=== PATIENT | female | born 1935 | race Caucasian/White ===

== ENCOUNTER 2016-02-19 00:30 | Emergency (ER) | payer OTHER ==
[2016-02-19] MEDS ORDERED: ALBUTEROL/IPRATROPIUM 1 VIAL SOL INH ONE ×3 (00:41→01:51)
[2016-02-19] MEDS ORDERED: ALBUTEROL/IPRATROPIUM 1 VIAL SOL ONE ×3 (00:42→01:52)
[2016-02-19 00:51] VITALS: TEMP 97.7
[2016-02-19] MEDS ORDERED: PREDNISONE 20 MG TAB PO ONE (01:04)
[2016-02-19] MEDS ORDERED: PREDNISONE 20 MG TAB ONE (01:10)
[2016-02-19 01:25] LABS: BASOPHILS % (AUTO) 0 % (0-3); EOSINOPHILS % (AUTO) 0 % (0-9); HEMATOCRIT 41 % (35-47); MONOCYTES % (AUTO) 6.6 % (0-12); NEUTROPHILS % (AUTO) 83.5 % (37-80)
[2016-02-19 01:45] LABS: GLOM FILT RATE 70 mL/min (>60); POTASSIUM 4.4 mMol/L (3.5-5.1); SODIUM 140 mMol/L (136-145)
[2016-02-19 02:29] VITALS: BP 139/73; PULSE 79; RESP 17; O2SAT 97
== END 2016-02-19 02:20 | disposition home or self-care (01) | DRG 203 ==
LOC: ED 00:30
DX: J45.901 Unspecified asthma with (acute) exacerbation (principal)
CPT/HCPCS: 36415; 71010; 80048; 84484; 85025; 85378; 93005; 99284; 99285; J7620

== ENCOUNTER 2016-02-20 21:50 | Emergency (ER) | payer OTHER ==
[2016-02-20] MEDS ORDERED: LORAZEPAM 0.5 MG TAB ONE (22:44)
[2016-02-20] MEDS ORDERED: LORAZEPAM 0.5 MG TAB PO ONE (22:44)
[2016-02-20] MEDS ORDERED: CODEINE/GUAIFENESIN 5 ML SOL PO ONE (22:50)
[2016-02-20] MEDS ORDERED: ALBUTEROL/IPRATROPIUM 1 VIAL SOL INH ONE (22:50)
[2016-02-20] MEDS ORDERED: ALBUTEROL/IPRATROPIUM 1 VIAL SOL ONE (22:51)
[2016-02-20] MEDS ORDERED: CODEINE/GUAIFENESIN 5 ML SOL ONE (22:51)
[2016-02-21] MEDS ORDERED: ALBUTEROL/IPRATROPIUM 1 VIAL SOL INH ONE (00:07)
[2016-02-21] MEDS ORDERED: BENZONATATE 200 MG SGL PO PRN (00:14)
[2016-02-21] MEDS ORDERED: CIPROFLOXACIN HCL 500 MG TAB PO SCH (00:15)
[2016-02-21] MEDS ORDERED: ALBUTEROL/IPRATROPIUM 1 VIAL SOL ONE (00:24)
[2016-02-21] MEDS ORDERED: CIPROFLOXACIN HCL 500 MG TAB PO ONE (00:31)
[2016-02-21 00:41] VITALS: RESP 24
[2016-02-21 00:47] VITALS: TEMP 98
[2016-02-21] MEDS ORDERED: PROPRANOLOL HYDROCHLORIDE 20 MG TAB PO SCH (01:00)
[2016-02-21] MEDS ORDERED: LORAZEPAM 0.5 MG TAB PO ONE ×2 (01:11)
[2016-02-21] MEDS ORDERED: LORAZEPAM 0.5 MG TAB ONE (01:12)
[2016-02-21] MEDS ORDERED: CODEINE/GUAIFENESIN 5 ML SOL ONE (01:18)
[2016-02-21 03:10] VITALS: O2SAT 91
[2016-02-21 03:11] VITALS: BP 133/72; PULSE 73
== END 2016-02-21 01:43 | disposition home or self-care (01) | DRG 203 ==
LOC: ED 21:50
DX: J45.901 Unspecified asthma with (acute) exacerbation (principal); F41.9 Anxiety disorder, unspecified; R05 Cough
CPT/HCPCS: 71020; 99284; 99285; J7620

== ENCOUNTER 2016-02-25 13:03 | Emergency (ER) | payer OTHER ==
[2016-02-25] MEDS ORDERED: ALBUTEROL/IPRATROPIUM 1 VIAL SOL INH ONE (13:48)
[2016-02-25 13:51] LABS: BASOPHILS % (AUTO) 1 % (0-3); EOSINOPHILS % (AUTO) 2 % (0-9); HEMATOCRIT 37 % (35-47); MEAN CORPUSCULAR HGB CONC 34.5 gm/dl (32.0-36.0); NEUTROPHILS % (AUTO) 71.4 % (37-80)
[2016-02-25 13:52] VITALS: RESP 20; TEMP 98.4
[2016-02-25] MEDS ORDERED: ALBUTEROL/IPRATROPIUM 1 VIAL SOL ONE (13:52)
[2016-02-25 14:09] LABS: ALBUMIN 2.5 gm/dl (3.4-5.0); CALCIUM 8.2 mg/dl (8.5-10.1); MAGNESIUM 1.6 mg/dl (1.8-2.4); POTASSIUM 3.4 mMol/L (3.5-5.1)
[2016-02-25 14:17] VITALS: O2SAT 99
[2016-02-25] MEDS ORDERED: AZITHROMYCIN 250 MG TAB PO ONE (14:46)
[2016-02-25 14:56] VITALS: BP 122/63; PULSE 84
[2016-02-25] MEDS ORDERED: AZITHROMYCIN 250 MG TAB ONE (15:02)
== END 2016-02-25 16:00 | disposition home or self-care (01) | DRG 202 ==
LOC: ED 13:03
DX: J45.901 Unspecified asthma with (acute) exacerbation (principal); J18.9 Pneumonia, unspecified organism
CPT/HCPCS: 80053; 83735; 85025; 85378; 99283; J7620

== ENCOUNTER 2016-03-06 03:56 | Emergency (ER) | payer OTHER ==
[2016-03-06 04:03] VITALS: RESP 20
[2016-03-06] MEDS ORDERED: SODIUM CHLORIDE 0.9% 1000ML 1,000 ML IV ONE ×2 (04:10→05:11)
[2016-03-06] MEDS ORDERED: SODIUM CHLORIDE 0.9% FLUSH 10 ML SOL IV PRN (04:15)
[2016-03-06] MEDS ORDERED: PANTOPRAZOLE SODIUM 40 MG/10 ML PDS IV ONE (04:20)
[2016-03-06] MEDS ORDERED: KETOROLAC TROMETHAMINE 30 MG/ML SOL IV ONE (04:20)
[2016-03-06] MEDS ORDERED: KETOROLAC TROMETHAMINE 30 MG/ML SOL ONE (04:21)
[2016-03-06] MEDS ORDERED: PANTOPRAZOLE SODIUM 40 MG/10 ML PDS ONE (04:21)
[2016-03-06 04:44] VITALS: TEMP 98.7
[2016-03-06 05:06] VITALS: BP 117/52; PULSE 96; O2SAT 90
== END 2016-03-06 07:15 | disposition home or self-care (01) | DRG 392 ==
LOC: ED 03:56
DX: K52.9 Noninfective gastroenteritis and colitis, unspecified (principal)
CPT/HCPCS: 96365; 96366; 96374; 96375; 99283; 99285; J1885

== ENCOUNTER 2016-08-29 07:49 | Emergency (ER) | payer OTHER ==
[2016-08-29] MEDS ORDERED: KETOROLAC TROMETHAMINE 30 MG/ML SOL IM ONE (08:18)
[2016-08-29 08:30] LABS: BASOPHILS % (AUTO) 1 % (0-3); EOSINOPHILS % (AUTO) 0 % (0-9); HEMATOCRIT 34 % (35-47); MEAN CORPUSCULAR HGB CONC 34.4 gm/dl (32.0-36.0); MEAN CORPUSCULAR VOLUME 85 fL (81-99); NEUTROPHILS % (AUTO) 71.2 % (37-80)
[2016-08-29] MEDS ORDERED: KETOROLAC TROMETHAMINE 30 MG/ML SOL ONE (08:34)
[2016-08-29 08:43] LABS: ALBUMIN 3.3 gm/dl (3.4-5.0); CALCIUM 8.4 mg/dl (8.5-10.1); POTASSIUM 3.4 mMol/L (3.5-5.1)
[2016-08-29 08:59] LABS: APPEARANCE,URINE Clear; BILIRUBIN,URINE NEGATIVE (NEGATIVE); COLOR,URINE Yellow; GLUCOSE, URINE (UA) NEGATIVE (NEGATIVE); KETONES,URINE NEGATIVE (NEGATIVE); LEUKOCYTE ESTERASE ,URINE NEGATIVE (NEGATIVE); NITRATE,URINE POSITIVE (NEGATIVE); OCCULT BLOOD,URINE TRACE INTACT (NEG-TRACE); UROBILINOGEN,URINE 0.2 (0.2-1.0 EU)
[2016-08-29 09:01] VITALS: RESP 14
[2016-08-29 09:08] LABS: RBC,URINE NEGATIVE (0-3AV/HPF); WBC,URINE NEGATIVE (0-5AV/HPF)
[2016-08-29 18:01] VITALS: BP 120/87; PULSE 76; TEMP 97.4; O2SAT 98
== END 2016-08-29 12:44 | disposition home or self-care (01) | DRG 392 ==
LOC: ED 07:49
DX: K59.01 Slow transit constipation (principal); Z87.442 Personal history of urinary calculi
CPT/HCPCS: 36415; 74176; 80053; 81001; 85025; 99283; J1885

== ENCOUNTER 2016-09-28 09:47 | Emergency (ER) | payer OTHER ==
[2016-09-28 10:32] LABS: BASOPHILS % (AUTO) 2 % (0-3); EOSINOPHILS % (AUTO) 3 % (0-9); HEMATOCRIT 40 % (35-47); MEAN CORPUSCULAR HGB CONC 33.9 gm/dl (32.0-36.0); MEAN CORPUSCULAR VOLUME 90 fL (81-99); MONOCYTES % (AUTO) 8.5 % (0-12); NEUTROPHILS % (AUTO) 63.6 % (37-80)
[2016-09-28 10:36] LABS: CALCIUM 8.8 mg/dl (8.5-10.1); POTASSIUM 3.8 mMol/L (3.5-5.1)
[2016-09-28 11:10] LABS: APPEARANCE,URINE Slightly Cloudy; BILIRUBIN,URINE NEGATIVE (NEGATIVE); COLOR,URINE Yellow; GLUCOSE, URINE (UA) NEGATIVE (NEGATIVE); KETONES,URINE NEGATIVE (NEGATIVE); LEUKOCYTE ESTERASE ,URINE 1+ (NEGATIVE); NITRATE,URINE NEGATIVE (NEGATIVE); OCCULT BLOOD,URINE TRACE INTACT (NEG-TRACE); UROBILINOGEN,URINE 0.2 (0.2-1.0 EU)
[2016-09-28 11:14] VITALS: TEMP 98.4
[2016-09-28 11:23] LABS: RBC,URINE 0-1 (0-3AV/HPF); WBC,URINE 0-2 (0-5AV/HPF)
[2016-09-28 12:14] VITALS: BP 125/80; PULSE 87; RESP 17; O2SAT 92
== END 2016-09-28 12:19 | disposition home or self-care (01) | DRG 690 ==
LOC: ED 09:47
DX: N39.0 Urinary tract infection, site not specified (principal)
CPT/HCPCS: 36415; 80048; 81001; 85025; 87088; 99282; 99283

== ENCOUNTER 2016-10-15 11:54 | Outpatient (CLI) | payer OTHER ==
[2016-09-28 12:14] VITALS: O2SAT 92
== END 2016-10-15 11:55 | disposition home or self-care (01) | DRG 561 ==
LOC: CONVCARE 11:54
PROVIDERS: ATTEND Orthopaedic Surgery
DX: S32.010D Wedge compression fracture of first lumbar vertebra, subsequent encounter for fracture with routine healing (principal)
CPT/HCPCS: 72120

== ENCOUNTER 2017-10-31 15:48 | Emergency (ER) | payer OTHER ==
[2017-10-31] MEDS ORDERED: LIDOCAINE HCL 2% MPF 10 ML SOL SC ONE (15:52)
[2017-10-31] MEDS ORDERED: LIDOCAINE HCL 2% MPF 10 ML SOL ONE ×2 (15:54)
[2017-10-31 16:03] VITALS: TEMP 96.5
[2017-10-31] MEDS ORDERED: BACITRACIN 500 U/GM OIN TOP ONE ×2 (16:11→16:46)
[2017-10-31] MEDS ORDERED: TDAP VACCINE 0.5 ML SUS IM ONE ×2 (16:12→16:46)
[2017-10-31 19:39] VITALS: BP 100/55; PULSE 59; RESP 16; O2SAT 94
== END 2017-10-31 17:41 | disposition home or self-care (01) | DRG 605 ==
LOC: ED 15:48
DX: S01.81XA Laceration without foreign body of other part of head, initial encounter (principal)
CPT/HCPCS: 12015; 90471; 90715; 99284; A9270-GY

== ENCOUNTER 2018-07-02 18:10 | Inpatient (IN) | payer OTHER ==
[2018-07-02] MEDS ORDERED: NITROGLYCERIN 0.4 MG TAB SL ONE (18:14)
[2018-07-02] MEDS ORDERED: ASPIRIN 81 MG CHEWABLE CTB ONE (18:14)
[2018-07-02] MEDS ORDERED: ASPIRIN 81 MG CHEWABLE CTB PO ONE (18:16)
[2018-07-02] MEDS ORDERED: ACETAMINOPHEN 500 MG 500 MG TAB PO ONE (18:16)
[2018-07-02] MEDS ORDERED: SODIUM CHLORIDE 0.9% 1000ML 1,000 ML IV ONE (18:18)
[2018-07-02] MEDS: NITROGLYCERIN 0.4 MG TAB SL PRN ×2 (18:21→18:39)
[2018-07-02 18:23] LABS: BASOPHILS % (AUTO) 0 % (0-3); EOSINOPHILS % (AUTO) 0 % (0-9); HEMATOCRIT 39 % (35-47); HEMOGLOBIN 12.5 gm/dl (12.0-15.5); LYMPHOCYTES % (AUTO) 3.4 % (10-50); MEAN CORPUSCULAR HEMOGLOBIN 28.2 pg (27.0-32.0); MEAN CORPUSCULAR HGB CONC 31.7 gm/dl (32.0-36.0); MEAN CORPUSCULAR VOLUME 89 fL (81-99); MONOCYTES % (AUTO) 5.1 % (0-12); NEUTROPHILS % (AUTO) 91.5 % (37-80)
[2018-07-02] MEDS ORDERED: ALBUTEROL NEB SOL 2.5MG/3ML 1 VIAL SOL ONE (18:26)
[2018-07-02] MEDS ORDERED: LORAZEPAM 2 MG/ML SOL ONE ×2 (18:27→18:37)
[2018-07-02] MEDS: ALBUTEROL NEB SOL 2.5MG/3ML 1 VIAL SOL NEB PRN (18:31)
[2018-07-02] MEDS: LORAZEPAM 2 MG/ML 10ML MDV 2 MG/ML VIAL IV PRN ×3 (18:32→18:40)
[2018-07-02] MEDS ORDERED: ACETAMINOPHEN 500 MG 500 MG TAB ONE (18:33)
[2018-07-02 18:35] LABS: INR 0.96 (0.86-1.12)
[2018-07-02] MEDS ORDERED: FENTANYL 100MCG/2ML SOL IV ONE (18:38)
[2018-07-02] MEDS ORDERED: FENTANYL 100MCG/2ML SOL ONE (18:46)
[2018-07-02 18:48] LABS: ALBUMIN 3.4 gm/dl (3.4-5.0); ALKALINE PHOSPHATASE 95 IU/L (46-116); ALT 16 IU/L (14-63); AST 11 IU/L (15-37); BILIRUBIN,TOTAL 0.4 mg/dl (0.2-1.0); BLOOD UREA NITROGEN 19 mg/dl (7-18); CALCIUM 8.8 mg/dl (8.5-10.1); CARBON DIOXIDE 28.9 mEq/L (21-32); CHLORIDE 101 mMol/L (98-107); CREATININE 0.91 mg/dl (0.60-1.00); GLUCOSE 189 mg/dl (74-106); POTASSIUM 3.8 mMol/L (3.5-5.1); SODIUM 139 mMol/L (136-145); TOTAL PROTEIN 7.6 gm/dl (6.4-8.2); TROP I < 0.017 ng/ml (0.000-0.056)
[2018-07-02] MEDS ORDERED: ALBUTEROL NEB SOL 2.5MG/3ML 1 VIAL SOL NEB PRN (19:54)
[2018-07-02] MEDS ORDERED: KETOROLAC TROMETHAMINE 30 MG/ML SOL IV ONE (19:55)
[2018-07-02] MEDS ORDERED: OSELTAMIVIR PHOSPHATE 75 MG CAP PO SCH ×3 (21:00→21:02)
[2018-07-02] MEDS ORDERED: SERTRALINE HYDROCHLORIDE 50 MG TAB PO SCH (21:00)
[2018-07-02] MEDS ORDERED: QUETIAPINE FUMARATE 25 MG TAB PO SCH (21:00)
[2018-07-02] MEDS ORDERED: TRAZODONE HYDROCHLORIDE 50 MG TAB PO SCH (21:00)
[2018-07-03] MEDS ORDERED: IBUPROFEN 400 MG TAB PO PRN (01:30)
[2018-07-03] MEDS: ALBUTEROL NEB SOL 2.5MG/3ML 1 VIAL SOL NEB PRN ×3 (01:57→06:46)
[2018-07-03] MEDS ORDERED: LORAZEPAM 2 MG/ML SOL ONE ×2 (02:02→03:18)
[2018-07-03] MEDS: LORAZEPAM 2 MG/ML 10ML MDV 2 MG/ML VIAL IV PRN ×2 (02:05→03:22)
[2018-07-03 04:41] VITALS: TEMP 97.4
[2018-07-03] MEDS ORDERED: BISACODYL 10 MG SUP PR PRN (05:10)
[2018-07-03] MEDS ORDERED: LIDOCAINE HCL 2% (VISCOUS) 15 ML SOL MT ONE (05:14)
[2018-07-03] MEDS ORDERED: ALUMINUM/MAGNESIUM 30 ML SUS PO ONE (05:14)
[2018-07-03 07:26] LABS: HEMATOCRIT 34 % (35-47); HEMOGLOBIN 10.9 gm/dl (12.0-15.5); MEAN CORPUSCULAR HEMOGLOBIN 28.7 pg (27.0-32.0); MEAN CORPUSCULAR HGB CONC 31.9 gm/dl (32.0-36.0); MEAN CORPUSCULAR VOLUME 90 fL (81-99)
[2018-07-03] MEDS ORDERED: SODIUM CHLORIDE 0.9% 1000ML 500 ML IV ONE (07:34)
[2018-07-03 07:40] LABS: APPEARANCE,URINE Slightly Cloudy; BILIRUBIN,URINE NEGATIVE (NEGATIVE); COLOR,URINE Yellow; GLUCOSE, URINE (UA) 1+ (NEGATIVE); KETONES,URINE NEGATIVE (NEGATIVE); LEUKOCYTE ESTERASE ,URINE NEGATIVE (NEGATIVE); NITRATE,URINE NEGATIVE (NEGATIVE); OCCULT BLOOD,URINE TRACE INTACT (NEG-TRACE); PH,URINE 5.5; UROBILINOGEN,URINE 0.2 (0.2-1.0 EU)
[2018-07-03 07:46] LABS: LACTIC ACID 1.9 mMol/L (0.0-2.0)
[2018-07-03 07:54] LABS: BACTERIA 1+ (< 1+); CRYSTALS NEGATIVE (0-3 AVE/HPF); EPITHELIAL CELLS 0-4 (SQUAMOUS); RBC,URINE 0-1 (0-3AV/HPF)
[2018-07-03] MEDS ORDERED: PIPERACILLIN/TAZOBACT 3.375 GM 4.5 GM in SODIUM CHLORIDE 0.9% 100 ML 100 ML IV ONE (07:55)
[2018-07-03] MEDS ORDERED: SODIUM CHLORIDE 0.9% 1000ML 1,000 ML IV ONE ×2 (07:55→08:11)
[2018-07-03] MEDS ORDERED: VANCOMYCIN HCL IV ONE (07:55)
[2018-07-03] MEDS ORDERED: SODIUM CHLORIDE 0.9% IV ONE (07:55)
[2018-07-03] MEDS ORDERED: PDS IV ONE (07:55)
[2018-07-03 07:59] LABS: BAND NEUTROPHILS % (MANUAL) 50 %; NEUTROPHILS % (MANUAL) 38 % (37-80)
[2018-07-03 08:00] LABS: ALBUMIN 2.7 gm/dl (3.4-5.0); ALKALINE PHOSPHATASE 69 IU/L (46-116); ALT 11 IU/L (14-63); AST 11 IU/L (15-37); BASOPHILS % (MANUAL) 0 % (0-3); BILIRUBIN,TOTAL 0.8 mg/dl (0.2-1.0); BLOOD UREA NITROGEN 21 mg/dl (7-18); CALCIUM 7.9 mg/dl (8.5-10.1); CARBON DIOXIDE 22.9 mEq/L (21-32); CHLORIDE 104 mMol/L (98-107); EOSINOPHILS % (MANUAL) 0 % (0-9); GLUCOSE 129 mg/dl (74-106); LYMPHOCYTES % (MANUAL) 7 % (10-50); MONOCYTES % (MANUAL) 5 % (0-12); NORMAL RBCS PRESENT; POTASSIUM 3.3 mMol/L (3.5-5.1); SODIUM 138 mMol/L (136-145); TOTAL PROTEIN 6.2 gm/dl (6.4-8.2); TROP I < 0.017 ng/ml (0.000-0.056)
[2018-07-03] MEDS ORDERED: VANCOMYCIN HYDROCHLORIDE 500 MG PDS IV ONE (08:04)
[2018-07-03] MEDS ORDERED: PIPERACILLIN/TAZOBACT 3.375 GM PDS IV ONE (08:04)
[2018-07-03] MEDS ORDERED: WATER STERILE ONE (08:06)
[2018-07-03] MEDS ORDERED: NOREPINEPHRINE BITARTRATE 4 MG/4 ML SOL IV ONE (08:08)
[2018-07-03 08:11] LABS: ABG PH 7.27 (7.35-7.45)
[2018-07-03] MEDS ORDERED: NOREPINEPHRINE 4 MG/4 ML 4 MG in DEXTROSE 500 ML 500 ML IV SCH (08:15)
[2018-07-03] MEDS ORDERED: ETOMIDATE 2 MG/ML SOL IV ONE ×2 (08:19→08:20)
[2018-07-03] MEDS ORDERED: SUCCINYLCHOLINE CHLORIDE 20 MG/ML SOL IV ONE ×2 (08:19→08:21)
[2018-07-03] MEDS ORDERED: CEFTRIAXONE 1 GM PDS 2 GM in SODIUM CHLORIDE 0.9% 100 ML 100 ML IV ONE (08:25)
[2018-07-03] MEDS ORDERED: CEFTRIAXONE 1 GM PDS ONE (08:28)
[2018-07-03] MEDS ORDERED: ROCURONIUM BROMIDE 10 MG/ML SOL IV ONE (08:43)
[2018-07-03] MEDS ORDERED: ENOXAPARIN 40 MG SOL SC SCH (09:00)
[2018-07-03] MEDS ORDERED: LAMOTRIGINE 25 MG TAB PO SCH (09:00)
[2018-07-03] MEDS ORDERED: PREDNISONE 20 MG TAB PO SCH (09:00)
[2018-07-03] MEDS ORDERED: LAMOTRIGINE 100 MG PO SCH (09:00)
[2018-07-03 10:57] VITALS: RESP 20
[2018-07-03 11:02] VITALS: BP 74/49; PULSE 95; O2SAT 93
== END 2018-07-03 09:05 | disposition short-term general hospital (02) | DRG 195 ==
LOC: ED 18:10 → ACUTE CARE 19:48 → UNDOADMIN 19:48 → ACUTE CARE 20:07
PROVIDERS: ADMIT Family Medicine; ATTEND Family Medicine
DX: J11.00 Influenza due to unidentified influenza virus with unspecified type of pneumonia (principal); J18.9 Pneumonia, unspecified organism; R06.02 Shortness of breath; R10.9 Unspecified abdominal pain; R41.0 Disorientation, unspecified; R07.9 Chest pain, unspecified
CPT/HCPCS: 31500; 36415; 36600; 51798; 71045; 71275; 74019; 80053; 81001; 82803; 83880; 84484; 85007; 85025; 85027; 85378; 85610; 85730; 87040; 93005; 93012; 94640; 96365; 96374; 96375; 99222; 99285; J0330; J0696; J1650; J1885; J2060; J2543; J3010; J3370; J7613; Q9967; A9270-GY; J3490

== ENCOUNTER 2018-09-16 07:55 | Outpatient (CLI) | payer OTHER | END 2018-09-16 07:56 | disposition home or self-care (01) | LOC: CONVCARE 07:56 ==